=== PATIENT | female | born 1995 | race Caucasian/White ===

== ENCOUNTER → 2017-09-10 | Outpatient (CLI) | payer OTHER ==
[~2017-09-10] MED LIST: BIRTH CONTROL PO; SERT25TA PO; SERT50TA PO
== END ==
LOC: CFH 11:54
PROVIDERS: ATTEND Nurse Practitioner Family
DX: M54.81 Occipital neuralgia (principal)
CPT/HCPCS: 72050

== ENCOUNTER → 2018-04-11 | Outpatient (CLI) | payer OTHER | END | disposition home or self-care (01) | LOC: CFH 11:09 | PROVIDERS: ATTEND Nurse Practitioner Family | DX: N20.1 Calculus of ureter (principal) | CPT/HCPCS: 72110; 74018 ==

== ENCOUNTER 2020-01-02 13:17 | Emergency (ER) | payer OTHER ==
[~2020-01-02] VITALS: Ht 157.5 cm; Wt 113.7 kg
--- NOTE | 2020-01-02 14:10 | NUR ---
ASSUMED CARE OF PATIENT. VS STABLE. NO ACUTE DISTRESS NOTED. CALL LIGHT IN PLACE. WILL CONTINUE TO MONITOR.
--- NOTE | 2020-01-02 15:48 | NUR ---
pt at ct
--- NOTE | 2020-01-02 16:11 | NUR ---
PT RESTING IN ROOM. NO ACUTE DISTRESS NOTED. CALL LIGHT IN PLACE. WILL CONTINUE TO MONITOR.
[2020-01-02 16:35] VITALS: BP 111/67
== END 2020-01-02 16:37 | disposition home or self-care (01) ==
LOC: ED 15:10
DX: S06.0X9A Concussion with loss of consciousness of unspecified duration, initial encounter (principal); R42 Dizziness and giddiness; Z86.39 Personal history of other endocrine, nutritional and metabolic disease; X58.XXXA Exposure to other specified factors, initial encounter; Y93.89 Activity, other specified; Y92.098 Other place in other non-institutional residence as the place of occurrence of the external cause; Y99.8 Other external cause status
CPT/HCPCS: 70450; 99284